=== PATIENT | female | born 1985 | race African-American/Black ===

== ENCOUNTER → 2016-05-24 | Outpatient (CLI) | payer OTHER ==
[~2016-05-24] MED LIST: Savella PO; TUSSSUS5 PO; TYLENOL PM PO; ZANA4CAP OR; [UNRECOGNIZED DRUG - OTHER] TD; aleve PO
--- NOTE | 2016-05-24 10:54 | REP ---
MRI LUMBAR SPINE WITHOUT CONTRAST: HISTORY: Back and right hip pain. COMPARISON: 01/04/2015. Decreased signal intensity on T2-weighted images is present in the L4-5 and L5-S1 intervertebral discs. The discs are decreased in height. These findings are consistent with disc degeneration. There is no disc bulge or herniation at the L1-2 and L2-3 levels. The nerves exit the neural foramina without compression. A diffuse disc bulge is present at the L3-4 level. There is minimal compression of the thecal sac. The L3 nerves exit the neural foramina without compression. A diffuse disc bulge and small central disc protrusion are present at the L4-5 level. There is minimal compression of the thecal sac. The L4 nerves exit the neural foramina without compression. A diffuse disc bulge and small disc extrusion central and eccentric to the left are present at the L5-S1 level. The disc extrusion is decreased in size. There is minimal compression of the thecal sac and left S1 nerve as it exits the thecal sac and in the left S1 lateral recess. The right S1 nerve is normal. The L5 nerves exit the neural foramina without compression. The conus medullaris is normal in appearance terminating at the level of the L1-2 intervertebral disc. Normal signal intensity is present in the lumbar vertebral bodies. IMPRESSION: 1. Diffuse disc bulge at the L3-4 level with minimal thecal sac compression. 2. Diffuse disc bulge and small central disc protrusion at the L4-5 level with minimal thecal sac compression. 3. Diffuse disc bulge and small disc extrusion at the L5-S1 level with minimal compression of the thecal sac and left S1 nerve as it exits the thecal sac and left S1 lateral recess. The disc extrusion is decreased in size. Signed by Mik Land MD 05/24/2016 11:00 A
== END ==
LOC: M RAD 08:52
PROVIDERS: ATTEND Physician Assistant
DX: M54.16 Radiculopathy, lumbar region (principal)

== ENCOUNTER 2016-09-07 14:34 | Emergency (ER) | payer OTHER, SELFPAY ==
[~2016-09-07] VITALS: Ht 157.5 cm; Wt 65.3 kg
[2016-09-07] MEDS ORDERED: CLAR1TAB2 PO (14:43)
[2016-09-07] MEDS ORDERED: FLON1SPR (14:43)
[2016-09-07] MEDS ORDERED: IPRATROPIUM 0.5MG/ALBUTEROL 2.5MG INH SOL UD 3ML (DUONEB)(J7620) NEB ONE (15:00)
[2016-09-07] MEDS ORDERED: ACETAMINOPHEN 325 MG TAB PO ONE (15:00)
[2016-09-07] MEDS ORDERED: predniSONE 20 MG TAB PO ONE (15:00)
[2016-09-07] MEDS ORDERED: ALBU83IN INH (16:09)
[2016-09-07] MEDS ORDERED: ZITHTAB PO (16:09)
[2016-09-07] MEDS ORDERED: PRED10TA PO (16:09)
[2016-09-07] MEDS ORDERED: TESS100C PO (16:09)
[2016-09-07] MEDS ORDERED: AZITHROMYCIN 250 MG TAB PO ONE (16:15)
[2016-09-07 16:16] VITALS: BP 126/63
--- NOTE | 2016-09-07 16:20 | REP ---
Chest two views HISTORY: Cough Comparison: 01/16/2016 The lungs are clear. The heart is normal in size. The pulmonary vasculature is normal in appearance. The bony structure is intact. IMPRESSION: No acute disease. Signed by Mik Land MD 09/07/2016 04:11 P
== END 2016-09-07 16:26 | disposition home or self-care (01) ==
LOC: M ED 14:50
DX: J45.21 Mild intermittent asthma with (acute) exacerbation (principal); J20.9 Acute bronchitis, unspecified; J06.9 Acute upper respiratory infection, unspecified

== ENCOUNTER 2017-01-28 17:15 | Emergency (ER) | payer OTHER, SELFPAY ==
[~2017-01-28] VITALS: Ht 157.5 cm; Wt 62.3 kg
[~2017-01-28 17:15] MED LIST changes: +ALBU83IN INH; +CLAR1TAB2 PO; +FLON1SPR; +PRED10TA2 PO; +TESS100C PO; +ZITHTAB PO
[2017-01-28 17:16] VITALS: BP 122/74
[2017-01-28] MEDS ORDERED: OMEP40CA2 PO (17:34)
[2017-01-28 20:34] LABS: BASO % 0.8 % (0.0-1.0); EOS # 0.1 K/mm3 (0.0-0.50); EOS % 1.7 % (0.0-3.0); LARGE UNSTAINED CELL # 0.1 K/mm3 (0.0-0.4); LARGE UNSTAINED CELL % 3.8 % (0.0-4.0); LYMPH # 1.5 K/mm3 (1.5-4.5); LYMPH % 41.8 % (24.0-44.0); MEAN CORPUSCULAR HEMOGLOBIN 30.6 pg (27.0-33.0); MEAN CORPUSCULAR HGB CONC 34.6 g/dl (32.0-36.5); MEAN CORPUSCULAR VOLUME 88.4 fl (80.0-96.0); MONO # 0.2 K/mm3 (0.0-0.8); MONO % 5.9 % (0.0-5.0); NEUTROPHILS # 1.6 K/mm3 (1.8-7.7); PLATELET COUNT, AUTOMATED 219 k/mm3 (150-450); RED CELL DISTRIBUTION WIDTH 13.6 % (11.5-14.5); WHITE BLOOD COUNT 3.5 K/mm3 (4.0-10.0)
[2017-01-28 21:08] LABS: ALBUMIN 3.7 GM/DL (3.2-5.2); ALBUMIN/GLOBULIN RATIO 0.74 (1.00-1.93); ALKALINE PHOSPHATASE 51 U/L (45-117); ALT/SGPT 16 U/L (12-78); ANION GAP 0 MEQ/L (8-16); AST/SGOT 15 U/L (15-37); BILIRUBIN,TOTAL 0.2 MG/DL (0.2-1.0); BLOOD UREA NITROGEN 10 MG/DL (7-18); CALCIUM LEVEL 8.8 MG/DL (8.5-10.1); CARBON DIOXIDE LEVEL 33 MEQ/L (21-32); CHLORIDE LEVEL 102 MEQ/L (98-107); CREATININE FOR GFR 0.75 MG/DL (0.55-1.02); GLOMERULAR FILTRATION RATE > 60.0 (>60); GLUCOSE, FASTING 80 MG/DL (70-105); SODIUM LEVEL 135 MEQ/L (136-145); TOTAL PROTEIN 8.7 GM/DL (6.4-8.2)
[2017-01-28] MEDS ORDERED: ISOVUE-370 76% 100ML VIAL (Q9967) As Ordered ONE (21:29)
--- NOTE | 2017-01-28 22:20 | REPUSA ---
CT of the abdomen and pelvis with contrast Clinical statement: Pain. Technique: Multiple axial CT images were obtained from the base of the lungs through the floor of the pelvis utilizing 5 mm axial slices after administration of nonionic intravenous contrast. Coronal an d sagittal reconstructions were also obtained. Comparison: 03/25/2016. Findings: Chest: The visualized lung bases are clear. Abdomen: The liver, spleen, pancreas, kidneys, gallbladder, and adrenal glands are unremarkable. The aorta is within normal limits. There is no evidence of abdominal lymphadenopathy or ascites. Pelvis: The bowel is unremarkable, with no obstructive or inflammatory changes. The appendix is alexandra l. The urinary bladder is within normal limits. The other pelvic structures appear grossly intact. Th ere is no evidence of pelvic lymphadenopathy or ascites. Bones: There are no suspicious osseous abnormalities seen. Impression: Unremarkable CT examination of the abdomen and pelvis.
[2017-01-28] MEDS ORDERED: DIFL150T PO (23:37)
[2017-01-28] MEDS ORDERED: BACT800T5 PO (23:37)
[2017-01-28] MEDS ORDERED: PYRI1TAB5 PO (23:37)
== END 2017-01-28 23:51 | disposition home or self-care (01) ==
LOC: M ED 17:15
DX: N34.2 Other urethritis (principal); Z79.899 Other long term (current) drug therapy
CPT/HCPCS: 74177; 80053; 81001; 85025; 87086; 87491; 87591; 99283; Q9967